=== PATIENT | female | born 1940 | race Caucasian/White ===

== ENCOUNTER → 2017-09-06 | Outpatient (CLI) | payer MEDICARE ==
[~2017-09-06] MED LIST: ANAS1TAB PO; CALC-197 PO; CALC1TAB87 PO; CO Q200C3 PO; HYDR-2768 PO; HYDR25TA5 PO; LOVA40TA PO; MEVA40TA PO; NORC5TAB PO; OMEP20TA PO; OMEP20TA93 PO; TAB-TAB PO; VITA-13 PO; VITA10004 PO; VITA200T2 PO
== END ==
LOC: CPRE 11:42
PROVIDERS: ATTEND Neurological Surgery
DX: Z01.812 Encounter for preprocedural laboratory examination (principal); M48.56XA Collapsed vertebra, not elsewhere classified, lumbar region, initial encounter for fracture
CPT/HCPCS: 87640; 87641

== ENCOUNTER → 2017-09-11 | Day surgery (SDC) | payer MEDICARE ==
[~2017-09-11] VITALS: Ht 152.4 cm; Wt 76.2 kg
[~2017-09-11] MED LIST changes: +ACETAMINOPHEN 1000 MG/100 ML 100 ML IV ONE; +ACETAMINOPHEN/HYDROcodone 325 MG/10 MG TAB PO PRN; +CHLORHEXIDINE GLUCONATE 2 % 1 PACK (2 CLOTHS) TOPICAL PRN; +DEXAMETHASONE SOD PHOS 4 MG/ML VIAL IV ONE; +DO NOT ADM ANY ANTICOAGULANT DRUGS PRN; +GLYCOPYRROLATE 1 MG/5 ML SYRINGE IV PUSH ONE; +INSULIN HUMAN REGULAR 1,000 UNITS/10 ML VIAL SQ PRN; +KETOROLAC TROMETHAMINE 30 MG/ML (IVP) VIAL IV PUSH ONE; +LACTATED RINGER'S 1000 ML IV PRN; +LIDOCAINE HCL 1% PF 5 ML SYRINGE OTHER ONE; +METOPROLOL TARTRATE 25 MG TAB PO PRN; +MIDAZOLAM HCL 2 MG/2 ML VIAL ONE; +MORPHINE SULFATE 4 MG/ML INJ ONE; +NEOSTIGMINE 5 MG/5 ML SYRINGE IV PUSH ONE; +ONDANSETRON HCL 4 MG/2 ML VIAL IV ONE; +PHENYLEPH/NS 1000 MCG/10 ML SYR IV ONE; +POVIDONE IODINE 5% (ANTISEPSIS KIT) 4 APPLICATIONS EACH NARE PRN; +PROPOFOL 200 MG/20 ML AMP IV ONE; +ROCURONIUM INJ 50 MG/5 ML SYRINGE IV PUSH ONE; +SODIUM CHLOR 0.9% 1000 ML INJ 1,000 ML IV SCH; +SODIUM CHLORID 0.9% 500 ML IV PRN; +VANCOMYCIN 1 GM/200 ML PREMIX ON-CALL IV SCH
--- NOTE | 2017-09-11 10:25 | PD.OP ---
Vy Santos MD Operative Report Date of Surgery: September 11, 2017 Preoperative Diagnosis: Lumbar L2 vertebral body compression fracture with intractable back pain Postoperative Diagnosis: Same Procedure: Lumbar L2 kyphoplasty Anesthesia: General endotracheal by Nicki wright Surgeon: Derek Sanon MD Regional Sales Executive(s): None Operation and Findings: Following administration of a general endotracheal anesthesia patient was placed in the prone position on chest rolls and Vineet table and all pressure points adequate padded. IV antibiotics were administered intravenously and the thoracolumbar area posteriorly prepped with a Betadine solution and painted and draped in the usual sterile fashion. Using AP and lateral arthroscopy guidance the stab incision sites were made at the L2 level overlying the pedicles bilaterally after infiltrating the skin was 0.5% Marcaine. The Jamshidi needles were then passed into the vertebral body to the pedicles on both sides and the hand-held drill trajectory created. The drills were then removed and then the balloons were passed into the vertebral body through both sides and dilated to create a cavity and restore vertebral body height. Subsequently the balloons were removed and the cavity packed with the bone cement 7 cc total. The guide was then removed and Steri-Strips applied at the puncture wounds along with a sterile dressing. He was then turned in spine position, extubated and taken to the recovery room. There were no intraoperative medications and all sponge and needle count was correct at the end the procedure. Estimated blood loss less than 5 cc. Derek Sanon MD September 11, 2017 10:25
--- NOTE | 2017-09-11 10:37 | RADRPT ---
EXAM DATE/TIME: 09/11/2017 09:49 [facility] COMPARISON: No previous studies available for comparison. INDICATIONS : Post-op L2 kyphoplasty for compression fracture. MEDICAL HISTORY : None. SURGICAL HISTORY : None. ENCOUNTER: Initial ACUITY: 1 day PAIN SCORE: Non-responsive. LOCATION: Lumbar spine. FINDINGS: Frontal and lateral views of the lumbar spine demonstrate kyphoplasty cement at L2 with mild loss of vertebral body height. CONCLUSION: L2 kyphoplasty cement present. Carlos Alberto Palacios MD on September 11, 2017 at 10:34 Board Certified Radiologist. This report was verified electronically.
[2017-09-11 11:18] VITALS: BP 113/68; PULSE 91; RESP 18; TEMP 98.1; O2SAT 97
== END | disposition home or self-care (01) ==
LOC: HSDC 05:57
PROVIDERS: ATTEND Neurological Surgery
DX: M48.56XA Collapsed vertebra, not elsewhere classified, lumbar region, initial encounter for fracture (principal); K21.9 Gastro-esophageal reflux disease without esophagitis; E78.00 Pure hypercholesterolemia, unspecified; D64.9 Anemia, unspecified; M81.0 Age-related osteoporosis without current pathological fracture; M43.16 Spondylolisthesis, lumbar region
CPT/HCPCS: 01936; 22514; 72100; J0131; J1100; J1885; J2250; J2270; J2370; J2405; J2710; J3010; J3370; J7120